=== PATIENT | female | born 1950 | race Caucasian/White ===

== ENCOUNTER 2016-06-28 06:22 | Day surgery (SDC) | payer OTHER ==
--- NOTE | ~2016-06-28 | OP ---
Record Of Operation [facility] [address] [place]. [address] NAME: MEDHAT BUNDY : 50 STATUS : [place] [facility] [place] PAT#: [id number] AGE: 65 ADM/REG DATE : 06/28/16 MR#: [id number] REPORT SERV DATE: 06/28/16 DICTATED BY: CLAUDIA BAUER JR. DATE: 06/28/16 REPORT STATUS : Draft TRANSCRIBED BY: SAMIR DATE: 06/28/16 DATE OF PROCEDURE: 06/28/2016 PREOPERATIVE DIAGNOSIS: Right upper lobe mass with mediastinal lymphadenopathy and PET-CT scan concerning for stage IV lung cancer, chronic obstructive pulmonary disease, depression, hypertension, and transient ischemic attack. POSTOPERATIVE DIAGNOSIS: Likely metastatic stage IIIA to possibly stage IV adenocarcinoma, final pathology pending. NAME OF OPERATION: Diagnostic therapeutic bronchoscopy, endobronchial ultrasound with multiple fine-needle aspirations, beckie stations 7. SURGEON: Claudia Bauer M.D. RESIDENT SURGEON: Dr. Nahid Scott. ANESTHESIA: General endotracheal. FINDINGS: The patient was noted to have multiple bilateral paratracheal subcarinal and hilar lymph nodes. These were pathologic in nature. Bronchoscopy demonstrated no endobronchial lesions with normal anatomy. Multiple fine-needle aspirations on the subcarinal lymph node was very large and bulky demonstrated obvious metastatic adenocarcinoma. Additional material sent for tissue diagnosis. Final pathology is pending. She is minimal bulky 3A with more likely stage IV disease based on her PET-CT scan. She is not a surgery candidate. DETAILS OF OPERATION: After adequate general anesthesia, the patient was intubated with an LMA. Diagnostic and therapeutic bronchoscopy was performed with above findings noted. Mucous secretions were evacuated. Endobronchial ultrasound was then performed noting the pathologically abnormal lymph nodes in the paratracheal, hilar, and subcarinal regions. A large subcarinal lymph node was biopsied multiple times, demonstrating obvious metastatic non-small cell lung cancer. This favored adenocarcinoma. Additional material was sent for cell block. Adequate hemostasis was then obtained. The procedure was terminated at this point. The patient tolerated the procedure well and taken back to the recovery room in stable condition. MAGDALENO/SAMIR Claudia Bauer Jr., M.D. / [id number] CC: Record Of Operation [address] [address] NAME: MEDHAT BUNDY : 50 STATUS : [place] [facility] [place] PAT#: [id number] AGE: 65 ADM/REG DATE : 06/28/16 MR#: [id number] REPORT SERV DATE: 06/28/16 DICTATED BY: CLAUDIA BAUER JR. DATE: 06/28/16 REPORT STATUS : Draft TRANSCRIBED BY: MODL DATE: 06/28/16 Lawson Gates Jr., MD [facility]
[~2016-06-28 06:22] MED LIST: CELEXA10 PO; FLEX PO; HYZAAR 100/25MG PO; LYRICA75 PO; MELATONIN1 M1 PO; NORCO1 TA1 PO; NORCO1 TAB PO; NORV10 PO; PLAVIX PO; ZOCOR20 PO
[2016-06-28 06:39] LABS: HEMATOCRIT 34.2 % (36.0-48.0); HEMOGLOBIN 11.9 g/dL (12.0-16.0)
[2016-06-28 06:54] LABS: BUN (BLOOD UREA NITROGEN) 11 MG/DL (6-23); CALCIUM, SERUM 9.2 MG/DL (8.5-10.4); CHLORIDE, SERUM 95 MMOL/L (96-112); CO2 (CARBON DIOXIDE) 31 MMOL/L (24-34); CREATININE 0.78 MG/DL (0.55-1.02); GFR AFRICAN AMERICAN 92 ML/MIN (>=60); GFR NON AFRICAN AMERICAN 80 ML/MIN (>=60); GLUCOSE, SERUM 95 MG/DL (60-99); POTASSIUM, SERUM 3.3 MMOL/L (3.5-5.3); SODIUM, SERUM 135 MMOL/L (135-148)
== END 2016-06-28 23:59 | disposition home or self-care (01) ==
LOC: DMU 06:22
PROVIDERS: Thoracic Surgery (Cardiothoracic Vascular Surgery)
PROC: 07B74ZX Excision of Thorax Lymphatic, Percutaneous Endoscopic Approach, Diagnostic (ICD-10-PCS; principal; 2016-06-28 08:00)
DX: C34.11 Malignant neoplasm of upper lobe, right bronchus or lung (principal); C77.1 Secondary and unspecified malignant neoplasm of intrathoracic lymph nodes; J44.9 Chronic obstructive pulmonary disease, unspecified; I10 Essential (primary) hypertension; E78.5 Hyperlipidemia, unspecified; E78.00 Pure hypercholesterolemia, unspecified; F32.9 Major depressive disorder, single episode, unspecified; F17.210 Nicotine dependence, cigarettes, uncomplicated; M19.90 Unspecified osteoarthritis, unspecified site; Z79.02 Long term (current) use of antithrombotics/antiplatelets; Z79.891 Long term (current) use of opiate analgesic; Z90.89 Acquired absence of other organs; Z90.710 Acquired absence of both cervix and uterus; Z86.73 Personal history of transient ischemic attack (TIA), and cerebral infarction without residual deficits; Z91.09 Other allergy status, other than to drugs and biological substances; Z98.890 Other specified postprocedural states
CPT/HCPCS: 80048; 81235; 85014; 85018; 88172; 88173; 88305; 88344; 88360; 93005; A9270-GY; C1725; J2250; J2370; J2405; J3010